=== PATIENT | female | born 1955 | race Caucasian/White ===

== ENCOUNTER 2018-04-24 08:25 | Inpatient (IN) | payer OTHER ==
[2018-04-24 09:08] LABS: PLATELET COUNT 315 10^3/uL (150-400)
--- NOTE | 2018-04-24 09:15 | EDPHY ---
H & P Stated Complaint: right shoulder and back pain since liver biopsy Thursday, getting worse Time Seen by Provider: 04/24/18 08:54 HPI/ROS: CHIEF COMPLAINT: Right back and shoulder pain x4 days HISTORY OF PRESENT ILLNESS: 62-year-old female postop day 5 post liver biopsy for recent diagnosis of primary lung cancer. Complaining of right shoulder and right back pain described as positional and pleuritic which started the past 2 days No dyspnea. No chest pain. No abdominal pain. No nausea or vomiting. No syncope or near syncope. No lower extremity edema. REVIEW OF SYSTEMS: A ten point review of systems was performed and is negative with the exception of the items mentioned in the HPI PAST MEDICAL & SURGICAL HISTORY: Recent primary lung cancer SOCIAL HISTORY: PHYSICAL EXAM (Prior to examination, patient consented to physical exam, hands were washed and my usual and customary physical exam procedures followed) 1) GENERAL: Well-developed, well-nourished, alert and oriented. Appears uncomfortable 2) HEAD: Normocephalic, atraumatic 3) HEENT: Pupils equal, round, reactive to light bilaterally. Sclera anicteric. 4) NECK: Full range of motion, no meningeal signs. 5) LUNGS: Clear auscultation bilaterally, no wheezes, no rhonchi, no retractions. 6) HEART: Regular rate and rhythm, no murmur, no heave, no gallop. 7) ABDOMEN: tender to palpation right upper quadrant. Negative peritoneal sign, 8) MUSCULOSKELETAL: Moving all extremities, no focal areas of tenderness, no obvious trauma. No peripheral edema or discoloration. 9) BACK: No CVA tenderness, no midline vertebral tenderness, no fluctuance, no step-off, no obvious trauma, no visual or palpable abnormality. 10) SKIN: No rash, no petechiae. 11) Psychiatric: Patient is oriented X 3, there is no agitation. DIFFERENTIAL DIAGNOSIS: In no particular order including but limited to pulmonary embolus, postoperative pain, hepatic bleeding post biopsy, pneumothorax - Medical/Surgical History Hx Diabetes: Yes Other PMH: lung CA - Social History Smoking Status: Former smoker Constitutional: Initial Vital Signs Temperature (C) 36.5 C 04/24/18 08:28 Heart Rate 94 04/24/18 08:28 Respiratory Rate 18 04/24/18 08:28 Blood Pressure 131/71 H 04/24/18 08:28 O2 Sat (%) 93 04/24/18 08:28 O2 Delivery Mode Room Air Allergies/Adverse Reactions: epinephrine Allergy (Verified 04/24/18 08:28) Home Medications: Medication Instructions Recorded Albuterol [Proventil Inhaler HFA 1 - 2 puffs IH Q4H PRN 04/24/18 (*)] Cholecalciferol Vit D3 [Vitamin D3 2,000 units PO DAILY 04/24/18 (*)] Estradiol 8mg P4 120 1 cap PO HS 04/24/18 Ibuprofen [Motrin (*)] 400 mg PO Q6 04/24/18 Lact Cmb2/S.thermophl/Bif Cmb1 2 each PO HS 04/24/18 [Vsl#3 Cap (*)] Levothyroxine [Synthroid 75 mcg 75 mcg PO DAILY06 04/24/18 (*)] Triamcinolone Acetonide [Nasacort] 1 spray EACHNARE HS 04/24/18 Medical Decision Making - Diagnostics Imaging Results: Imaging Impressions Chest X-Ray 04/24/18 08:32 Impression: 1. Left upper lobe density of uncertain etiology or chronicity. This may represent the underlying primary neoplasm. 2. Degenerative thoracic and lumbar disk disease. Abdomen CT 04/24/18 09:12 Impression: 1. Pulmonary embolic disease. 2. No abdominal complication from recent biopsy. 3. Extensive hepatic metastatic disease. Results called and discussed with Santo Rdz, at 04/24/2018 9:50 General information for patients regarding this examination can be found at [email or web address]. If you have questions or comments about this report, please contact me at (hospital) or [phone] (cell). ED Course/Re-evaluation: 9:15 a.m.: Old medical records reviewed. Offered analgesia, patient declines narcotics as she is driving We discussed non narcotics does Toradol however due to possible hepatic bleeding post biopsy will hold on this. Hold on imaging. Discussed case with secondary supervising physician Dr. Indiana Glass in the ER 9:59 a.m.: Discussed with the patient her diagnostic studies which are negative for hepatic, bleeding however she is noted to have extensive pulmonary embolic disease right greater than left visualized in the cephalad cuts. I discussed this with the patient. 10:14 a.m.: Consultation Dr. Pereira who will consult Oncology 10:15 a.m. consultation with hospitalist, admit to Dr. Pisano - Data Points Laboratory Results: Laboratory Results 04/24/18 08:45 04/24/18 08:45 04/24/18 04/24/18 04/24/18 08:51 08:45 08:45 WBC RBC Hgb POC Hgb 12.9 gm/dL gm/dL (12.6-16.3) Hct POC Hct 38 % % (38-47) MCV MCH MCHC RDW Plt Count MPV Neut % (Auto) Lymph % (Auto) [place]mer % (Auto) Eos % (Auto) Baso % (Auto) Nucleat RBC Rel Count Absolute Neuts (auto) Absolute Lymphs (auto) Absolute Monos (auto) Absolute Eos (auto) Absolute Basos (auto) Absolute Nucleated RBC Immature Gran % Immature Gran # PT 14.0 SEC SEC (12.0-15.0) INR 1.06 (0.83-1.16) APTT 29.2 SEC SEC (23.0-38.0) POC Sodium 141 mEq/L mEq/L (135-145) Sodium 139 mEq/L mEq/L (135-145) POC Potassium 3.8 mEq/L mEq/L (3.3-5.0) Potassium 4.1 mEq/L mEq/L (3.3-5.0) POC Chloride 104 mEq/L mEq/L (97-110) Chloride 106 mEq/L mEq/L (97-110) Carbon Dioxide 25 mEq/l mEq/l (22-31) Anion Gap 8 mEq/L mEq/L (8-16) POC BUN 16 mg/dL mg/dL (7-23) BUN 17 mg/dL mg/dL (7-23) Creatinine 0.7 mg/dL mg/dL (0.6-1.0) POC Creatinine 0.6 mg/dL mg/dL (0.6-1.0) Estimated GFR > 60 Glucose 97 mg/dL mg/dL (70-100) POC Glucose 97 mg/dL mg/dL (70-100) Calcium 9.6 mg/dL mg/dL (8.5-10.4) Total Bilirubin 0.9 mg/dL mg/dL (0.1-1.4) Conjugated Bilirubin 0.2 mg/dL mg/dL (0.0-0.5) Unconjugated Bilirubin 0.7 mg/dL mg/dL (0.0-1.1) AST 77 IU/L H IU/L (14-46) ALT 32 IU/L IU/L (9-52) Alkaline Phosphatase 300 IU/L H IU/L (38-126) Total Protein 6.8 g/dL g/dL (6.3-8.2) Albumin 3.7 g/dL g/dL (3.5-5.0) Lipase 98 IU/L IU/L (23-300) 04/24/18 08:45 WBC 13.96 10^3/uL H 10^3/uL (3.80-9.50) RBC 4.19 10^6/uL 10^6/uL (4.18-5.33) Hgb 11.8 g/dL L g/dL (12.6-16.3) POC Hgb Hct 37.3 % L % (38.0-47.0) POC Hct MCV 89.0 fL fL (81.5-99.8) MCH 28.2 pg pg (27.9-34.1) MCHC 31.6 g/dL L g/dL (32.4-36.7) RDW 12.9 % % (11.5-15.2) Plt Count 315 10^3/uL 10^3/uL (150-400) MPV 9.4 fL fL (8.7-11.7) Neut % (Auto) 73.1 % % (39.3-74.2) Lymph % (Auto) 11.0 % L % (15.0-45.0) Parmer % (Auto) 9.3 % % (4.5-13.0) Eos % (Auto) 5.6 % % (0.6-7.6) Baso % (Auto) 0.4 % % (0.3-1.7) Nucleat RBC Rel Count 0.0 % % (0.0-0.2) Absolute Neuts (auto) 10.19 10^3/uL H 10^3/uL (1.70-6.50) Absolute Lymphs (auto) 1.54 10^3/uL 10^3/uL (1.00-3.00) Absolute Monos (auto) 1.30 10^3/uL H 10^3/uL (0.30-0.80) Absolute Eos (auto) 0.78 10^3/uL H 10^3/uL (0.03-0.40) Absolute Basos (auto) 0.06 10^3/uL 10^3/uL (0.02-0.10) Absolute Nucleated RBC 0.00 10^3/uL 10^3/uL (0-0.01) Immature Gran % 0.6 % % (0.0-1.1) Immature Gran # 0.09 10^3/uL 10^3/uL (0.00-0.10) PT INR APTT POC Sodium Sodium POC Potassium Potassium POC Chloride Chloride Carbon Dioxide Anion Gap POC BUN BUN Creatinine POC Creatinine Estimated GFR Glucose POC Glucose Calcium Total Bilirubin Conjugated Bilirubin Unconjugated Bilirubin AST ALT Alkaline Phosphatase Total Protein Albumin Lipase Medications Given: Discontinued Medications Heparin Sodium (Porcine) (Heparin Injection) 0 unit IVP EDNOW ONE Stop: 04/24/18 10:00 Last Admin: 04/24/18 10:12 Dose: 4,880 units Heparin Sodium (Porcine) (Heparin 50 Units/Ml (Premix)) 500 mls @ 0 mls/hr IV EDNOW ONE; Per Protocol PRN Reason: Protocol Stop: 04/24/18 10:00 Last Admin: 04/24/18 10:11 Dose: 500 mls Ketorolac Tromethamine (Toradol) 15 mg IVP EDNOW ONE Stop: 04/24/18 10:16 Last Admin: 04/24/18 10:21 Dose: 15 mg Point of Care Test Results: Chemistry 04/24/18 08:51 POC Sodium 141 mEq/L mEq/L (135-145) POC Potassium 3.8 mEq/L mEq/L (3.3-5.0) POC Chloride 104 mEq/L mEq/L (97-110) POC BUN 16 mg/dL mg/dL (7-23) POC Creatinine 0.6 mg/dL mg/dL (0.6-1.0) POC Glucose 97 mg/dL mg/dL (70-100) ISTAT H&H 04/24/18 08:51 POC Hgb 12.9 gm/dL gm/dL (12.6-16.3) POC Hct 38 % % (38-47) Departure - Departure Disposition: [facility] Inpatient Acute Clinical Impression: Pulmonary embolus Qualifiers: Pulmonary embolism type: other Chronicity: acute Acute cor pulmonale presence: without acute cor pulmonale Qualified Code(s): I26.99 - Other pulmonary embolism without acute cor pulmonale Lung cancer Qualifiers: Laterality: right Lung location: lower lobe of lung Qualified Code(s): C34.31 - Malignant neoplasm of lower lobe, right bronchus or lung Condition: Fair
[2018-04-24] MEDS ORDERED: IOPAMIDOL (ISOVUE-300) 100 ML BTL ONE (09:16)
[2018-04-24] MEDS ORDERED: HEPARIN 10,000 UNIT/10 ML MDV (1,000 UNIT/ML) IVP ONE (09:59)
[2018-04-24] MEDS ORDERED: HEPARIN/DEXTROSE 500 ML IV ONE (09:59)
--- NOTE | 2018-04-24 10:10 | CPEKG ---
Heart Rate: 81 RR Interval: 741 P-R Interval: 160 QRSD Interval: 76 QT Interval: 376 QTC Interval: 437 P [employer]: 34 QRS [employer]: -15 T Wave [employer]: -22 EKG Severity - ABNORMAL ECG - EKG Impression: SINUS RHYTHM EKG Impression: BORDERLINE LEFT AXIS DEVIATION EKG Impression: CONSIDER ANTERIOR INFARCT EKG Impression: ABNORMAL T, CONSIDER ISCHEMIA, INFERIOR LEADS Electronically Signed By: Indiana Glass 24-Apr-2018 15:13:56
[2018-04-24] MEDS ORDERED: KETOROLAC 15 MG/1 ML SDV IVP ONE (10:15)
[2018-04-24 10:18] LABS: INR 1.06 (0.83-1.16)
[2018-04-24] MEDS ORDERED: oxyCODONE IR 5 MG TAB PO PRN (11:55)
[2018-04-24] MEDS ORDERED: ALBUTEROL 60 PUFFS/8 GM MDI IH PRN (11:56)
--- NOTE | 2018-04-24 13:44 | GCON ---
[f rep st] CONSULTATION HEMATOLOGY-ONCOLOGY CONSULTATION The patient is a 62-year-old female who was recently diagnosed with metastatic lung carcinoma. She t ells me that in the fall, she developed a superficial thrombophlebitis of her left thigh, which resol caty with conservative management. Later, she began having fevers and developed a cough that was dry. Eventually, a chest x-ray showed a left upper lobe mass, and then a CT scan showed a 4.1 x 2.8 cm s piculated mass in the left upper lobe, felt to be suspicious for malignancy. There was, in addition, left supraclavicular aortopulmonary and left suprahilar adenopathy. There was a large mass occupyin g nearly the entire dome of the right side of the liver, measuring 13.5 cm. There was a 1.1 cm adren al nodule. She has lost about 5-10 pounds. She had a liver biopsy at [facility] 5 d ays ago, which showed a malignancy consistent with a primary lung carcinoma. This was a moderately d ifferentiated adenocarcinoma with papillary features. Positive for CK7, TTF-1, and Napsin A. Additio nal molecular testing is pending. She has had pain in the right upper quadrant and right shoulder si nce the biopsy. She came into the emergency room today complaining of pain and some shortness of josh ath. A study of the abdomen and pelvis and chest showed moderate volume bilateral lower lobe, right greater than left, pulmonary embolic disease associated with a small pleural effusion. She is being admitted for evaluation and anticoagulation. Currently, she complains of fairly significant right-sided pleuritic chest pain with some radiation i nto her right shoulder. PAST MEDICAL HISTORY: She has been generally healthy with a history of exercise-induced asthma, hypo thyroidism. She has a history of back surgery. She has a distant smoking history. FAMILY HISTORY: Mother had MDS and a sister had breast cancer. REVIEW OF SYSTEMS: Negative for 10 systems except as discussed above. PHYSICAL EXAMINATION: GENERAL: This is a pleasant female. She appears in [id number] distress . VITAL SIGNS: Blood pressure is 141/83, pulse is 77. She is afebrile. EYES: She is not icteric. LYMPH: I detect a small left supraclavicular lymph node. LUNGS: Show somewhat diminished breath sounds at the right base. CARDIAC: She is tachycardic but otherwise unremarkable. ABDOMEN: Benign . EXTREMITIES: At this time show no obvious swelling. LABORATORY: White count today is 13,000, hemoglobin 11.8, platelets 315,000. AST is 77, alkaline ph osphatase is 300. IMAGING: I should note she had a recent MRI of the brain, which showed no evidence of [employer] metastasis . She did have a duplex ultrasound of the right leg performed on 04/12, which showed superficial venous thrombosis within a superficial varicosity in the medial right thigh. IMPRESSION: Patient with a newly diagnosed metastatic lung carcinoma, primarily to liver, presenting with right-sided chest pain. This coincided with a liver biopsy, which certainly could be contribut ing to some of her discomfort; however, CT angiogram shows significant pulmonary emboli. PLAN: At this time is to admit. She has been started on intravenous heparin in the emergency room a nd I think this is appropriate. I think after her condition stabilizes, we could transition her to a n oral anticoagulant, possibly Xarelto. She did receive Toradol in the ER and still has significant pain, so I will add some morphine to her regimen. Our service will follow with you. /[id number]/MODL
[2018-04-24] MEDS ORDERED: ONDANSETRON 4 MG/2 ML VIAL IVP PRN (15:06)
[2018-04-24] MEDS ORDERED: ONDANSETRON DISINTEGRATING 4 MG TAB PO PRN (15:06)
[2018-04-24] MEDS ORDERED: ACETAMINOPHEN 325 MG TAB PO PRN (15:06)
--- NOTE | 2018-04-24 15:30 | GHP ---
[f rep st] HISTORY AND PHYSICAL DATE OF ADMISSION: 04/24/2018 CHIEF COMPLAINT: Shoulder pain. Lower chest pain. HISTORY OF PRESENT ILLNESS: This is a 62-year-old female who was recently diagnosed with metastatic lung cancer. She had a biopsy done on the . She has a known history of a left upper lobe mass a nd a large mass occupying nearly the entire dome of the right side of the liver as well as an adrenal nodule. She had this biopsy done 5 days ago and then fairly quickly afterwards developed right-side d pleuritic chest pain in the right shoulder and the right back. She was evaluated and diagnosed wit h pulmonary embolism. She did have a history of a superficial thrombophlebitis on the left thigh las t fall which resolved. She has been having fevers for the last several months. She does admit to a dry cough. REVIEW OF SYSTEMS: A 10-point review of systems was obtained and was negative. PAST MEDICAL HISTORY: 1. Metastatic lung cancer as above. This is adenocarcinoma. 2. History of exercise-induced asthma. 3. Hypothyroidism. 4. Previous back surgery. MEDICATIONS: Reviewed and does include estrogen for postmenopausal symptoms. SOCIAL HISTORY: Distant history of smoking. . FAMILY HISTORY: Breast cancer and MDS. PHYSICAL EXAMINATION: VITAL SIGNS: Afebrile, blood pressure is 141/83, heart rate 77, oxygen satura tion 96% on room air. GENERAL: The patient is well developed, no apparent distress. HEENT: Nonict ananda sclerae. Extraocular movements intact. Moist mucous membranes. NECK: Supple. No thyromegaly . LUNGS: Good effort. Clear to auscultation bilaterally. CARDIOVASCULAR: Regular rate and rhythm . No murmurs, rubs, or gallops. ABDOMEN: Positive bowel sounds. Some firmness and fullness in the right upper quadrant. EXTREMITIES: No clubbing, cyanosis, or edema. SKIN: Without rash. Warm, d ry, intact. NEUROLOGIC: Alert and oriented x3. Moving all 4 extremities equally. PSYCH: Normal a ffect. LABORATORY DATA: White blood count 13, hemoglobin 8. Coags are negative. Chemistry is normal, thou gh AST is elevated at 77 and alkaline phosphatase at 300. CT scan of the abdomen and pelvis shows no hematoma in the biopsy area but multiple pulmonary embolisms. ASSESSMENT: This is a 62-year-old female with metastatic lung cancer, presenting with pulmonary embo lism. 1. Pulmonary embolism. Will treat with Lovenox and stop the heparin that has been given in the [facility] department. 2. Pleuritic chest pain. The patient really does not want narcotics. Will try a little bit of tram adol, but I am going to give her a couple days of Toradol. I think that being 5 days out of liver bi opsy with no hematoma found on CT scan that we are probably safe to add the Toradol to Lovenox. Will closely monitor, however. 3. Postmenopausal symptoms. I am going to hold her estrogen. She can have another risk/benefit con versation with Oncology if she really wants to keep it in the setting of being on anticoagulation. 4. Metastatic lung cancer, per Oncology who will be following. 5. Hypothyroidism. /[id number]/MODL
[2018-04-24] MEDS: KETOROLAC 15 MG/1 ML SDV IVP SCH ×2 (16:00→22:13)
[2018-04-24] MEDS: ENOXAPARIN 60 MG/0.6 ML SYR SC SCH ×2 (16:00→20:21)
--- NOTE | 2018-04-24 16:03 | PDMN ---
Medical Necessity Medical necessity: Pt meets INPT criteria per [place] and [facility] [id number] Pulmonary Embolism (moderate volume bilateral lower lobe pulmonary embolic disease associated with a small pleural effusion; newly diagnosed metastatic lung cancer with liver biopsy done 5 days [employer]; est. LOS >2 MN).
[2018-04-24] MEDS ORDERED: VSL#3 1 EACH CAP PO SCH (21:00)
[2018-04-24] MEDS: traMADol 50 MG TAB PO PRN (21:04)
[2018-04-24] MEDS: FLUTICASONE NASAL 120 SPRAYS/16 GM MDI EACHNARE SCH (22:08)
[2018-04-25 05:27] LABS: PLATELET COUNT 271 10^3/uL (150-400)
[2018-04-25] MEDS: traMADol 50 MG TAB PO PRN ×2 (05:34→21:52)
[2018-04-25] MEDS: LEVOTHYROXINE 75 MCG TAB PO SCH (05:34)
[2018-04-25] MEDS: KETOROLAC 15 MG/1 ML SDV IVP SCH (05:35)
[2018-04-25] MEDS: ENOXAPARIN 60 MG/0.6 ML SYR SC SCH ×2 (09:21→21:52)
--- NOTE | 2018-04-25 10:38 | HOSPPROG ---
Hospitalist Progress Note Assessment/Plan: * Acute PE * found on CT abd - don't think a dedicated CT chest would add anything * cont Lovenox in hospital another day then could transition to xarelto * Recent diagnosis of metastatic lung cancer * recent liver biopsy 6 days ago * no bleeding on CT abd * Anemia * drop in hg * will dc toradol * recheck at noon Subjective: pain is better. breathing better Objective: Vital Signs Temp Pulse Resp BP Pulse Ox 36.6 C 74 18 135/70 H 94 04/25/18 08:19 04/25/18 08:19 04/25/18 08:19 04/25/18 08:19 04/25/18 08:19 Laboratory Results 04/25/18 04:25 04/25/18 04:25 04/24/18 04/25/18 04/26/18 05:59 05:59 05:59 Intake Total 800 Balance 800 PT 14.0 SEC (12.0-15.0) 04/24/18 08:45 INR 1.06 (0.83-1.16) 04/24/18 08:45 - Physical Exam Constitutional: no apparent distress, appears nourished, not in pain Eyes: anicteric sclera, EOMI Cardiovascular: regular rate and rhythym, no murmur, rub, or gallop Respiratory: no respiratory distress, clear to auscultation Gastrointestinal: normoactive bowel sounds, distension (ruq) Skin: warm Neurologic: AAOx3 Psychiatric: interacting appropriately, not anxious, not encephalopathic, thought process linear ICD10 Worksheet Patient Problems: Problems Problem Status Onset Lung cancer Acute Pulmonary embolus Acute
--- NOTE | 2018-04-25 11:51 | SOAPPROG ---
SOAP Progress Note Assessment/Plan: Assessment: 1. Lung cancer 2. PE, pain is better 3.anemia Plan:Agree with lovenox for another day, then xarelto at time of D/C. toradol stopped, hgb being followed 04/25/18 11:48 Subjective: Chest pain better Objective: Vital Signs Temp Pulse Resp BP Pulse Ox 97.9 F 74 18 135/70 H 94 04/25/18 08:19 04/25/18 08:19 04/25/18 08:19 04/25/18 08:19 04/25/18 08:19 Laboratory Results 04/25/18 04:25 04/25/18 04:25 04/24/18 04/25/18 04/26/18 05:59 05:59 05:59 Intake Total 800 Balance 800 PT 14.0 SEC (12.0-15.0) 04/24/18 08:45 INR 1.06 (0.83-1.16) 04/24/18 08:45 Physical Exam - Physical Exam General Appearance: alert, no apparent distress Respiratory: chest non-tender, lungs clear Cardiac/Chest: regular rate, rhythm Abdomen: normal bowel sounds, non-tender ICD10 Worksheet Patient Problems: Problems Problem Status Onset Lung cancer Acute Pulmonary embolus Acute
--- NOTE | 2018-04-25 13:10 | ASMTCMCOM ---
CM Note CM Note Notes: Chart reviewed. 62 year old female s/p liver biopsy 5 days ago admitted via ED with c/o chest pain. Per CT scan has Pulmonary emboli. Recent lung cancer diagnosis. Likely no needs at dc. CM to follow. Plan: TBD likely home no services. Date Signed: 04/25/2018 01:09 PM Electronically Signed By:Erica Reece RN
[2018-04-25] MEDS ORDERED: VSL#3 1 EACH CAP PO SCH (21:00)
[2018-04-25] MEDS: FLUTICASONE NASAL 120 SPRAYS/16 GM MDI EACHNARE SCH (21:52)
[2018-04-26 04:39] LABS: PLATELET COUNT 294 10^3/uL (150-400)
[2018-04-26] MEDS: LEVOTHYROXINE 75 MCG TAB PO SCH (05:06)
[2018-04-26] MEDS: ENOXAPARIN 60 MG/0.6 ML SYR SC SCH (09:43)
--- NOTE | 2018-04-26 11:38 | GDS ---
[f rep st] DISCHARGE SUMMARY DISCHARGE DIAGNOSES: 1. Acute bilateral pulmonary embolism. 2. Stage II lung cancer. 3. Normocytic anemia. HISTORY OF PRESENT ILLNESS: A 62-year-old female with metastatic lung cancer, presenting for right-s ided pleuritic chest pain with radiation to her shoulder. She had a biopsy 5 days ago. ASSESSMENT AND PLAN: 1. Acute bilateral pulmonary embolism: Was treated with Lovenox and transitioned to Xarelto 15 mg b .i.d. for 3 weeks and 20 mg daily. Stop her hormones. 2. Pleuritic chest pain: Continue p.r.n. Advil at low dose. Educated her on the risk of bleeding. Prescribed low-dose tramadol at discharge. 3. Postmenopausal symptoms. Hold her estrogen. 4. Metastatic lung cancer. Follow up with Oncology. 5. Hypothyroidism, levothyroxine. 6. Reflux. Advised her to schedule famotidine 1-2 times a day. DISPOSITION: The patient is stable for discharge home. NEW MEDICATIONS: 1. Tramadol 25 mg q.6 hours p.r.n. 2. Xarelto 15 mg p.o. b.i.d., then 20 mg daily. FOLLOWUP: Primary oncologist. PHYSICAL EXAMINATION: VITAL SIGNS: Today, temperature 36.5, blood pressure 140/76, heart rate is in 70s, respirations 18, 97% on room air. GENERAL: She is well appearing, sitting in bed, in no acute distress. HEENT: PERRLA. Moist mucous membranes. CV: Regular rate and rhythm. LUNGS: Difficul t to take deep inspiration due to pain, but clear. ABDOMEN: Soft, nontender. : No [place]. MUSCU LOSKELETAL: 5/5 upper and lower extremity strength. NEURO: 2 through 12 intact. PSYCH: Alert and oriented x3. Time spent on discharge greater than 30 minutes counseling the patient on medications and followup eugene fisher. /[id number]/MODL
--- NOTE | 2018-04-26 11:52 | SOAPPROG ---
TIM Progress Note Assessment/Plan: E&M for NSCLC * NSCLC with liver mets: awaiting molecular studies before starting therapy; has follow up with Dr. Ugalde next week; getting second opinion at next week too. * Pulmonary Embolism: Agree with changing to xarelto; pain still could be from either PE or from liver mets. Will encourage using incentive spirometer as she is splinting some. Subjective: Still some right sided pain with deep inspiration although feeling a little better since starting anticoagulation. Objective: Vital Signs Temp Pulse Resp BP Pulse Ox 36.6 C 74 18 141/76 H 97 04/26/18 08:06 04/26/18 08:06 04/26/18 08:06 04/26/18 08:06 04/26/18 08:06 Laboratory Results 04/26/18 04:06 04/25/18 04:25 04/25/18 04/26/18 04/27/18 05:59 05:59 05:59 Intake Total 800 200 Balance 800 200 PT 14.0 SEC (12.0-15.0) 04/24/18 08:45 INR 1.06 (0.83-1.16) 04/24/18 08:45 Physical Exam - Physical Exam General Appearance: no apparent distress Respiratory: lungs clear Cardiac/Chest: regular rate, rhythm ICD10 Worksheet Patient Problems: Problems Problem Status Onset Pulmonary embolus Acute Lung cancer Acute
[2018-04-26 12:26] VITALS: BP 121/69
--- NOTE | 2018-04-26 14:01 | ASMTLACE ---
LACE Length of stay for Answers: 2 days current admission Comorbidities - select Answers: Any tumor (including all that apply lymphoma or leukemia) Other Notes: PE # of Emergency department Answers: 1-2 visits in the last 6 months Score: 6 Date Signed: 04/26/2018 01:55 PM Electronically Signed By:Erica Reece RN
--- NOTE | 2018-04-26 14:01 | ASMTCMCOM ---
CM Note CM Note Notes: Chart reviewed. Patient has been medically cleared for discharge to home no needs identified CM available should needs arise. Plan: DC to home. Date Signed: 04/26/2018 01:57 PM Electronically Signed By:Erica Reece RN
== END 2018-04-26 14:15 | disposition home or self-care (01) | DRG 176 ==
LOC: OBSVTOIN 10:17 → F1N 11:24
PROVIDERS: ADMIT Internal Medicine; ATTEND Internal Medicine
DX: I26.99 Other pulmonary embolism without acute cor pulmonale (principal); C78.00 Secondary malignant neoplasm of unspecified lung; C22.8 Malignant neoplasm of liver, primary, unspecified as to type; D64.9 Anemia, unspecified; E03.9 Hypothyroidism, unspecified; K21.9 Gastro-esophageal reflux disease without esophagitis
CPT/HCPCS: 82435-PO; 82565-PO; 82947-PO; 84132-PO; 84295-PO; 84520-PO; 85014-PO; 85520-90; 96365; 96366; J1644; J1650; J1885; Q9967